=== PATIENT | male | born 1930 | race Caucasian/White ===

== ENCOUNTER 2016-12-09 13:02 | Outpatient (CLI) | payer OTHER | END 2016-12-09 13:03 | disposition home or self-care (01) | DX: G47.10 Hypersomnia, unspecified (principal); G47.8 Other sleep disorders; R06.83 Snoring; G47.21 Circadian rhythm sleep disorder, delayed sleep phase type; G47.19 Other hypersomnia ==

== ENCOUNTER 2016-12-27 08:00 | Outpatient (CLI) | payer OTHER | END 2016-12-27 23:59 | DX: R51 Headache (principal); I50.9 Heart failure, unspecified; G45.9 Transient cerebral ischemic attack, unspecified ==

== ENCOUNTER 2017-01-07 11:07 | Outpatient (CLI) | payer OTHER ==
[2017-01-07] MEDS ORDERED: IOPAMIDOL-300 50 ML VIAL PO ONE (11:40)
[2017-01-07] MEDS ORDERED: IOPAMIDOL-300 100 ML VIAL IVP ONE (11:45)
== END 2017-01-07 11:08 | disposition home or self-care (01) ==
DX: I67.82 Cerebral ischemia (principal); G31.9 Degenerative disease of nervous system, unspecified
CPT/HCPCS: 70470; Q9967

== ENCOUNTER 2017-05-09 17:48 | Outpatient (CLI) | payer OTHER | END 2017-05-09 17:49 | disposition critical access hospital (66) | LOC: EMS 17:48 | PROVIDERS: ATTEND Surgery | DX: R56.9 Unspecified convulsions (principal) | CPT/HCPCS: A0425; A0427 ==

== ENCOUNTER 2017-05-09 18:21 | Observation (INO) | payer OTHER, MEDICARE ==
[2017-05-09] MEDS ORDERED: SODIUM CHLORIDE 0.9% 500 ML IV ONE (18:35)
--- NOTE | 2017-05-09 18:35 | ED Physician Documentation ---
PD HPI SYNCOPE - Stated complaint Stated Complaint: SYNCOPE - Chief complaint Chief Complaint: General - History obtained from History obtained from: Patient, Family, EMS - History of Present Illness Witnessed: Witnessed Timing - onset: How many minutes ago (20) Duration: Minutes (1-2 or less. Daughter saw patient wavering and seem to perhaps reach for the deck railing, then he collapsed. She went over to him within few seconds and he was still unresponsive, and seemed to have shallow breathing. He did tense up his arms and neck. No tremors per se. He then awoke and was moderately confused for a minute or so. He was more lucid by EMS arrival several minutes later. Denies chest pain. He did have abrasion back of head and states some localized headache there.) Preceding symptoms: Light headed. No: Headache, Chest pain, Abdominal pain Associated symptoms: Headache (he struck back of head when fainted, with some local headache after.). No: Chest pain, Abdominal pain Contributing factors: Exertion (was sweeping the deck). No: Recent med change, Decreased PO intake Similar symptoms before: Has not had sx before Recently seen: Not recently seen Review of Systems Constitutional: denies: Fever, Chills Nose: denies: Rhinorrhea / runny nose, Congestion Throat: denies: Sore throat Cardiac: denies: Chest pain / pressure, Palpitations, Pedal edema, Calf pain Respiratory: denies: Dyspnea, Cough, Wheezing GI: denies: Abdominal Pain, Nausea, Vomiting, Diarrhea Skin: reports: Abrasion (s). denies: Laceration (s) Musculoskeletal: denies: Neck pain, Back pain Neurologic: reports: Syncope, Headache, Head injury. denies: Focal weakness, Numbness, Altered mental status Psychiatric: denies: Depressed Endocrine: reports: Easy bruising / bleeding. denies: Weight loss Immunocompromised: denies: Immunocompromised PD PAST MEDICAL HISTORY - Past Medical History Cardiovascular: Hypertension, Atrial fibrillation Respiratory: None Neuro: TIA - Present Medications Home Medications: Ambulatory Orders Medication Instructions Recorded Confirmed Dabigatran [Pradaxa] 0 mg PO DAILY 05/09/17 05/09/17 Lisinopril 10 mg PO DAILY 05/09/17 05/09/17 Simvastatin 0 mg PO DAILY 05/09/17 05/09/17 - Allergies Allergies/Adverse Reactions: Allergies Allergy/AdvReac Type Severity Reaction Status Date / Time No Known Drug Allergies Allergy Verified 05/09/17 18:37 - Living Situation Living Situation: reports: With family Living Arrangement: reports: At home - Social History Does the pt smoke?: No Does the pt drink ETOH?: No Does the pt have substance abuse?: No - Family History Family history: reports: Non contributory PD ED PE NORMAL - Vitals Vital signs reviewed: Yes - General General: No acute distress, Well developed/nourished, Other (abrasion back of head without laceration nor FB. ) - HEENT HEENT: Pharynx benign, Dentition benign - Neck Neck: Supple, no meningeal sign, No bony TTP, No adenopathy - Cardiac Cardiac: No murmur, No rub. No: RRR (rate controlled 60-70, with irregular pattern c/w atrial fib.) - Respiratory Respiratory: No respiratory distress, Clear bilaterally - Abdomen Abdomen: Soft, Non tender - Male Male : Deferred - Rectal Rectal: Deferred - Back Back: No CVA TTP, No spinal TTP - Derm Derm: Normal color, Warm and dry - Extremities Extremities: No deformity, No tenderness to palpate, Normal ROM s pain, No edema - Neuro Neuro: Alert and oriented X 3, No motor deficit, Normal speech - Psych Psych: Normal mood Results - Vitals Vitals: Vital Signs - 24 hr 05/09/17 05/09/17 05/09/17 18:21 19:52 21:42 Temperature 36.3 C L 36.1 C L Heart Rate 65 69 58 L Respiratory 18 16 18 Rate Blood Pressure 120/63 131/73 H 132/66 H O2 Saturation 100 98 93 05/09/17 22:45 Temperature 36.5 C Heart Rate 55 L Respiratory 18 Rate Blood Pressure 114/56 L O2 Saturation 95 Oxygen O2 Source Room air - EKG (time done) 18:39 Rate: Rate (enter#) Rhythm: Atrial fibrillation (60) [place]: Normal Intervals: RBBB QRS: Normal Ischemia: T wave inversion (V1-V3 with nonspecific ), Non specific changes Compare to prior EKG: Old EKG unavailable - Labs Labs: Laboratory Tests 05/09/17 05/09/17 05/09/17 19:48 19:48 19:48 WBC 7.6 RBC 3.57 L Hgb 11.4 L Hct 32.8 L MCV 91.8 MCH 31.9 H MCHC 34.7 RDW 15.1 H Plt Count 116 L MPV 8.6 Neut # 5.5 Lymph # 0.9 L Coles # 0.8 Eos # 0.3 Baso # 0.1 Absolute Nucleated RBC 0.00 Nucleated RBCs 0.0 Sodium 132 L Potassium 5.0 Chloride 102 Carbon Dioxide 22 Anion Gap 8.0 BUN 33 H Creatinine 1.7 H Estimated GFR (MDRD) 38 L Glucose 109 H Calcium 8.8 Magnesium 1.9 Total Bilirubin 1.3 H AST 40 ALT 24 Alkaline Phosphatase 80 Total Creatine Kinase CK-MB (CK-2) Troponin I 0.12 B-Natriuretic Peptide Total Protein 6.8 Albumin 3.8 Globulin 3.0 Albumin/Globulin Ratio 1.3 Lipase 33 05/09/17 05/09/17 05/09/17 19:48 22:10 22:10 WBC RBC Hgb Hct MCV MCH MCHC RDW Plt Count MPV Neut # Lymph # Coles # Eos # Baso # Absolute Nucleated RBC Nucleated RBCs Sodium Potassium Chloride Carbon Dioxide Anion Gap BUN Creatinine Estimated GFR (MDRD) Glucose Calcium Magnesium Total Bilirubin AST ALT Alkaline Phosphatase Total Creatine Kinase 230 CK-MB (CK-2) 5.6 Troponin I 0.23 B-Natriuretic Peptide 352 H Total Protein Albumin Globulin Albumin/Globulin Ratio Lipase - Rads (name of study) head CT Radiology: Prelim report reviewed (no bleed, no acute process) PD MEDICAL DECISION MAKING - ED course Complexity details: reviewed results, re-evaluated patient, considered differential (he appears well here and has not pain complaints. However no history of syncope nor seizures. This is concerning for diabetic patient with history of HTN and atrial fib. Initial troponin is indeterminate. Repeat one at slightly higher, concerning for ACS but is still not truly positive at 4 hours after onset symptoms and he is still without chest pain. Willl have Hospitalist admit for repeated Troponin at 8-12 hours.), d/w patient, d/w family (daughter) Departure - Departure Disposition: ED Place in Observation Clinical Impression: Syncope Qualifiers: Syncope type: unspecified Qualified Code(s): R55 - Syncope and collapse Condition: Stable Record reviewed to determine appropriate education?: Yes
[2017-05-09 19:55] LABS: BASOPHILS # (AUTO) 0.1 10^3/uL (0.0-0.1); BASOPHILS % (AUTO) 0.7 %; EOSINOPHILS # (AUTO) 0.3 10^3/uL (0.0-0.7); EOSINOPHILS % (AUTO) 3.4 %; HCT - HEMATOCRIT 32.8 % (42.0-52.0); HGB - HEMOGLOBIN 11.4 g/dL (14.0-18.0); LYMPHOCYTES # (AUTO) 0.9 10^3/uL (1.5-3.5); LYMPHOCYTES % (AUTO) 11.7 %; MEAN CORPUSCULAR HEMOGLOBIN 31.9 pg (27.0-31.0); MEAN CORPUSCULAR HGB CONC 34.7 g/dL (32.0-36.0); MEAN CORPUSCULAR VOLUME 91.8 fL (80.0-94.0); MEAN PLATELET VOLUME 8.6 fL (7.4-11.4); MONOCYTES # (AUTO) 0.8 10^3/uL (0.0-1.0); MONOCYTES % (AUTO) 11.1 %; NEUTROPHILS # (AUTO) 5.5 10^3/uL (1.5-6.6); NEUTROPHILS % (AUTO) 73.1 %; RED BLOOD COUNT 3.57 10^6/uL (4.70-6.10); RED CELL DISTRIBUTION WIDTH 15.1 % (12.0-15.0); UNCORRECTED WHITE BLOOD COUNT 7.6 x10^3/uL; WHITE BLOOD COUNT 7.6 x10^3/uL (4.8-10.8)
--- NOTE | 2017-05-09 19:55 | CT Preliminary Report ---
Exam: CT Head W/O IMPRESSION: 1. Negative for hemorrhage, mass effect, or localizing acute process. 2. Mild nonfocal white matter disease. Nonspecific but most commonly seen with chronic microangiopath y. [facility] SITE ID: [id number]
--- NOTE | 2017-05-09 19:57 | CT Report ---
EXAM: CT HEAD EXAM DATE: 05/09/2017 07:34 PM. CLINICAL HISTORY: Syncope/fall, on Pradaxa. COMPARISON: 01/07/2017. TECHNIQUE: Multiaxial CT images were obtained from the foramen magnum to the vertex. IV contrast: Non e. Reformats: Coronal. In accordance with CT protocol optimization, one or more of the following dose reduction techniques w ere utilized for this exam: automated exposure control, adjustment of mA and/or KV based on patient s ize, or use of iterative reconstructive technique. FINDINGS: Parenchyma: There is mild periventricular white matter hypodensity. Negative for acute hemorrhage. No midline shift or mass effect. Extraaxial Spaces: No abnormal subdural or epidural fluid collection. Ventricles: Normal in size and position. Sinuses: Imaged paranasal sinuses, orbits, and mastoids show no significant abnormality. Bones: No evidence of fracture or calvarial defect. Other: None. IMPRESSION: 1. Negative for hemorrhage, mass effect, or localizing acute process. 2. Mild nonfocal white matter disease. Nonspecific but most commonly seen with chronic microangiopath y. [facility] Referring Provider Line: [phone] SITE ID: [id number]
[2017-05-09 20:08] LABS: ALBUMIN/GLOBULIN RATIO 1.3 (1.0-2.2); BILIRUBIN,TOTAL 1.3 mg/dL (0.2-1.0); CALCIUM 8.8 mg/dL (8.5-10.3); CREATININE 1.7 mg/dL (0.6-1.2); MAGNESIUM 1.9 mg/dL (1.7-2.8); TOTAL PROTEIN 6.8 g/dL (6.7-8.2)
[2017-05-09] MEDS ORDERED: ASPIRIN CHEW 81 MG TABLET PO STA (20:44)
[2017-05-09 22:35] LABS: TROPONIN I 0.23 ng/mL (<0.49)
[2017-05-09 22:36] LABS: CREATINE KINASE MB 5.6 ng/mL (0.6-6.3)
[2017-05-09] MEDS ORDERED: MORPHINE 2 MG/ML SYRINGE IVP PRN (23:01)
[2017-05-09] MEDS ORDERED: ZOLPIDEM 5 MG TABLET PO PRN (23:05)
[2017-05-09] MEDS ORDERED: SODIUM CHLORIDE FLUSH 0.9% 10 ML SYRINGE IVP PRN (23:05)
[2017-05-09] MEDS ORDERED: ONDANSETRON 4 MG/2 ML VIAL IVP PRN (23:05)
[2017-05-09] MEDS ORDERED: ACETAMINOPHEN 325 MG TABLET PO PRN (23:05)
[2017-05-10 04:29] LABS: CALCIUM 8.9 mg/dL (8.5-10.3); CREATININE 1.7 mg/dL (0.6-1.2); POTASSIUM 4.9 mmol/L (3.5-5.0)
--- NOTE | 2017-05-10 06:04 | HISTORY & PHYSICAL EXAMINATION ---
DATE OF ADMISSION: 05/09/2017 Please note that I did see the patient and entered admission orders prior to midnight. CHIEF COMPLAINT: Syncope. HISTORY OF PRESENT ILLNESS: The patient is an 86-year-old white male with past medical history of atrial fibrillation on therapeutic anticoagulation and with history of coronary artery disease status post coronary artery bypass graft in 1998. The patient was in his usual state of health on the afternoon of 2016, he was sweeping his deck, at which time he became lightheaded and passed out. Other than being lightheaded, he offered no complaints. Denied chest pain, shortness of breath. Noted, however, that considering his advanced age, he often gets exerted even on minimal physical activity. He does not remember exactly what happened, but when he regained consciousness his daughter, Jennifer was standing over him. The patient's daughter, Jennifer actually accompanied the patient to the ER and she confirmed the history. The patient had a true syncope witnessed by his daughter. He fell on the ground, hit the back of his head and was lying on his back when Jennifer assisted him. It took about 30 seconds to a minute until he completely regained consciousness. Initially, when he opened his eyes, he appeared foggy and slightly confused but quickly regained consciousness. He did not have any focal weakness. 911 was called and by the time they arrived on the scene, the patient was back to normal. When I examined him in the ER, he was not in distress, sitting up in bed chit chatting, denied all complaints. Upon presentation to the ER, the patient was afebrile and hemodynamically stable. Notably, his heart rate went on the lower side, anywhere between 50 and 60. EKG showed atrial fibrillation with a slow rate and a right bundle branch block pattern. CT scan of the brain was negative, showed no acute abnormality. Signs of nonspecific chronic microangiopathy were mentioned in the report. Notably, the patient suffered a closed head injury and had occipital abrasion and small bruise, but there was no intracranial hemorrhage. Laboratories showed creatinine of 1.7. Of note, the patient has history of chronic renal insufficiency with creatinine baseline between 1.3 and 1.5. His white blood cell count was normal. Electrolytes unremarkable. Troponin was 0.12, subsequently increased to 0.23. CK and CK-MB were unremarkable. Regarding cardiac history, the patient reports that he last underwent stress test in 06/2016 which was negative. He has not had any cardiac problem since his cardiac bypass, since 1998. He does not have history of ventricular tachycardia and had not had recent problem with atrial fibrillation. Reviewing online records, there is an echocardiogram from 2014 which described ejection fraction of 55%, anteroseptal hypokinesis and mild to moderate pulmonary hypertension. PAST MEDICAL HISTORY: 1. Hypertension. 2. Dyslipidemia. 3. Chronic renal insufficiency. 4. Atrial fibrillation on Pradaxa anticoagulation, not needing a rate control agent. 5. Abnormal EKG with right bundle branch block pattern. 6. History of congestive heart failure, unknown details from the past. Most recently echocardiogram showed normal systolic function, wall motion abnormality and mild to moderate pulmonary hypertension. 7. Coronary artery disease. History of coronary artery bypass graft in 1998, no angiography and no stent placement. The patient's cardiac status has been stable since the bypass. OUTPATIENT MEDICATIONS: Included. 1. Pradaxa. 2. Lisinopril. 3. Simvastatin. ALLERGIES: NO KNOWN DRUG ALLERGIES. SOCIAL HISTORY: The patient does not smoke, does not drink. He ambulates with a cane. For longer distances, he uses an electric wheelchair. FAMILY HISTORY: Negative for coronary artery disease. CODE STATUS: FULL CODE. REVIEW OF SYSTEMS: Please see pertinent positive listed at history of present illness. In addition, the patient complained of chronic insomnia and his daughter mentioned that he most likely has obstructive sleep apnea, which he plans to get evaluated for as an outpatient. In addition, on further interview, he denied any recent change in his health such as fever, cough, shortness of breath, worsening exertional symptoms or any other change. A 12-point review was negative. PHYSICAL EXAMINATION: VITAL SIGNS: Heart rate between 50 and 60, respiratory rate 18, oxygen saturation 96% on room air, blood pressure 130/50, temperature 36.6 Celsius. GENERAL: The patient is a well-developed elderly male, who is not in distress. SKIN: Without pallor or jaundice. LYMPH NODES: Mild pitting pedal edema bilaterally symmetric. CARDIOVASCULAR: S1, S2 irregularly irregular, bradycardia. I could not hear significant murmur. RESPIRATORY: No wheezes, no crackles. Good air entry throughout. No increased work of breathing. ABDOMEN: Obese, benign. Bowel tones present. NEUROLOGIC: Alert, oriented, nonfocal. PSYCH: Cooperative. MUSCULOSKELETAL: Small abrasion on the back of the head. No other trauma. ASSESSMENT AND PLAN/ACTIVE ISSUES/DIAGNOSES: 1. Syncope. Given the patient's extensive cardiac history, the most likely possibility would be cardiogenic syncope, such as syncope secondary to bradycardia or uncontrolled rate with atrial fibrillation. Also with underlying coronary artery disease, a short episode of ventricular tachycardia is also possible. On initial evaluation, the patient ruled out for acute coronary syndrome, had 2 negative troponins and EKG without acute change. Overnight, he is getting admitted under observation. We will complete rapid cardiac rule out, checking last set of troponin. For cardiac arrhythmia, the patient will be monitored on telemetry. On admission he was given an aspirin. If he completes a rapid cardiac rule out, he should be referred back to his insurance healthcare consultant for further workup. As he had a stress test in June 2016 and he does have regular cardiology followup, I would probably not do a stress test here in [facility] and I would send him back to have repeat stress test done as outpatient. 2. Closed head injury without acute intracranial abnormality on CT scan. As the patient takes therapeutic anticoagulation, he is on Pradaxa, he will need to be monitored at least for 24 hours for signs of head bleed and prior to discharge, if there is any concern, he should have a repeat CT scan of the brain to make sure that he is not developing subdural hematoma. 3. Atrial fibrillation, with slow ventricular rate without use of rate control medication. I suspect that the patient likely has sick sinus syndrome and might have bradycardic episodes. For now, we will monitor him on telemetry. He might benefit from event monitoring which could be arranged by his insurance healthcare consultant from the outpatient side. 4. Therapeutic anticoagulation. We will continue Pradaxa. 5. Deep venous thrombosis prophylaxis not needed as the patient is anticoagulated. Time spent in the care of this patient was 60 minutes. JOB #: [id number] EXT JOB #:[id number] FAREED
[2017-05-10] MEDS: SODIUM CHLORIDE FLUSH 0.9% 10 ML SYRINGE IVP SCH ×2 (06:32→15:20)
--- NOTE | 2017-05-10 06:36 | XRAY Preliminary Report ---
Exam: XR Chest 2 View PA/LAT IMPRESSION: 1. Cardiomegaly and postoperative changes. 2. Mild pulmonary vascular congestion. [facility] SITE ID: [id number]
--- NOTE | 2017-05-10 06:38 | XRAY Report ---
EXAM: CHEST RADIOGRAPHY EXAM DATE: 05/10/2017 05:59 AM. CLINICAL HISTORY: Syncope. COMPARISON: 02/14/2016. TECHNIQUE: 2 views. FINDINGS: Lungs/Pleura: Mild pulmonary vascular congestion. No alveolar consolidation. No significant pleural e ffusion. Mediastinum: Mild cardiomegaly. Aortic atherosclerosis. Other: Status post median sternotomy. IMPRESSION: 1. Cardiomegaly and postoperative changes. 2. Mild pulmonary vascular congestion. [facility] Referring Provider Line: [phone] SITE ID: [id number]
[2017-05-10] MEDS ORDERED: ATORVASTATIN 10 MG TABLET PO SCH (09:00)
[2017-05-10] MEDS ORDERED: NON FORMULARY MED (Lisinopril [Lisinopril] 10 MG) PO SCH (09:00)
[2017-05-10] MEDS ORDERED: DABIGATRAN 75 MG CAPSULE PO SCH (09:00)
[2017-05-10] MEDS ORDERED: LISINOPRIL 5 MG TABLET PO SCH (09:00)
[2017-05-10] MEDS ORDERED: NON FORMULARY MED (Simvastatin [Simvastatin] 20 MG) PO SCH (09:00)
[2017-05-10] MEDS ORDERED: POLYETHYLENE GLYCOL 3350 17 GM PACKET PO SCH (09:00)
--- NOTE | 2017-05-10 15:31 | CT Report ---
EXAM: CT HEAD EXAM DATE: 05/10/2017 03:09 PM. CLINICAL HISTORY: Fall COMPARISON: 05/09/2017. TECHNIQUE: Multiaxial CT images were obtained from the foramen magnum to the vertex. IV contrast: Non e. Reformats: Coronal. In accordance with CT protocol optimization, one or more of the following dose reduction techniques w ere utilized for this exam: automated exposure control, adjustment of mA and/or KV based on patient s ize, or use of iterative reconstructive technique. FINDINGS: Parenchyma: No intraparenchymal hemorrhage. No evidence of mass, midline shift, or CT findings of inf arction. [place]-white differentiation is distinct. Periventricular white matter hypoattenuation is nons pecific but most likely reflects the sequela of small vessel ischemic change. Mild cortical atrophy. Extraaxial Spaces: Normal for age. No subdural or epidural collections identified. Ventricles: Normal in size and position. Sinuses: Imaged paranasal sinuses, orbits, and mastoids show no significant abnormality. Bones: No evidence of fracture or calvarial defect. Other: None. IMPRESSION: 1. No acute intracranial abnormality. 2. Probable sequela of small vessel ischemic change. [facility] Referring Provider Line: [phone] SITE ID: [id number]
--- NOTE | 2017-05-10 16:14 | Discharge Plan ---
Discharge Plan Disposition: Home, Self Care Condition: Fair Prescriptions: Lisinopril [Zestril] 2.5 mg PO DAILY #30 tablet Diet: Cardiac Activity Restrictions: Activity as Tolerated Shower Restrictions: No Driving Restrictions: Yes (No driving for 6 mos (if you drive)) Weight Bearing: Full Weight Additional Instructions or Follow Up instructions: Stop the Lisinopril 10 mg dose Start the new lower dose of Lisinopril 2.5 mg daily Continue all your other medications as previously taken See your doctor to arrange for pacemaker placement No Smoking: If you smoke, Please STOP! Call for help.
[2017-05-10 16:33] VITALS: BP 143/70
[2017-05-11] MEDS ORDERED: LISINOPRIL 5 MG TABLET PO SCH (09:00)
--- NOTE | 2017-05-11 12:30 | DISCHARGE SUMMARY ---
DATE OF ADMISSION: 05/09/2017 DATE OF DISCHARGE: 05/10/2017 HISTORY OF PRESENT ILLNESS: This is an 86-year-old white male with a history of permanent atrial fibrillation on Pradaxa, history of coronary disease with bypass surgery done over 20 years ago. His last stress test was approximately 10 months ago, which, according to him, was stable. The patient also takes medications for hypertension, hypothyroidism and hyperlipidemia. The patient presented with a witnessed syncopal event, which occurred while he was sweeping outdoors. He hit his left elbow and left shoulder and left occiput area, and the daughter witnessed this and states that it took approximately 60 seconds for him to recover, but by the time he was in the emergency room, he was alert and oriented. The patient was admitted for syncope workup. HOSPITAL COURSE AND DISCHARGE DIAGNOSES 1. Syncope. The patient had normal troponins. The patient had normal electrolytes. The patient had mild chronic renal insufficiency but no evidence of prerenal azotemia to suggest dehydration to explain the syncope. The patient was admitted with atrial fibrillation with rates in the 50s and during the night had brief episodes of atrial fibrillation with a ventricular rate in the 30s. An orthostatic vital sign check showed that from the supine to sitting position his systolic blood pressure was in the 130 range, and with standing, it dropped to 116 systolic with a minimal change of heart rate from 50 beats only to 60 beats. The patient underwent a CT scan of his head, which showed no evidence of prior stroke, microangiopathy. Because of the fall, the CT of the head was repeated after approximately 20 hours and showed no evidence of bleeding, such as a subdural hematoma. The impression was that the patient had orthostasis and chronotropic incompetence as a cause of his syncope. Therefore, his lisinopril dose of 10 mg daily was decreased to 2.5 mg daily at discharge, and he was advised to have cardiology followup for likely pacemaker insertion that would be needed within the next weeks to months. The patient MAY NOT DRIVE for the next 6 months because of the syncope, if he drives. 2. Coronary artery disease with bypass surgery. There were no complaints or abnormality with his troponin during this admission. His echo was done as an inpatient that showed mild wall motion abnormalities but an overall preserved LVEF, but there was significant pulmonary hypertension seen on the echo with PA pressure of 66 mmHg. 3. Permanent atrial fibrillation. The patient is on Pradaxa at renal doses which is appropriate. If there are further falls; however, the Pradaxa would be risky to use, and he should then be converted to a daily aspirin a day for stroke prophylaxis. With regard to the slow rate of his atrial fibrillation, a pacemaker is very likely to be needed in the next few weeks to months. The patient is eager to have this management, and he was advised to have followup with his PCP and boatswains mate for this to be scheduled. 4. Pulmonary hypertension. The patient has no evidence of COPD to explain the pulmonary hypertension; however, in review of systems, there was note of the patient having sleep apnea. The patient has planned to have sleep studies and always canceled these, and it was advised that he undergo this evaluation and management. 5. Hypothyroidism. Continue with present dose of his thyroid replacement. CONDITION AT DISCHARGE: Fair. FOLLOWUP: With primary care doctor and his boatswains mate. CODE STATUS: IS A FULL CODE. JOB #: [id number] EXT JOB #:[id number] ADDENDUM: THE DAUGHTER CALLED AFTER [facility], ASKING WHY THE PATIENT SHOULD STOP HIS ATOVASTATIN. I EXPLAINED THAT HIS MED LIST INDICATED HE WAS ON SIMVASTATIN AT HOME AND THAT WE DON'T CARE THAT, AND THAT LIPITOR WAS SUBSTITUTED AN INPATIENT. THE DAUGHTER SAID THAT SIMVASTATIN IS INCORRECT, HE TAKES LIPITOR. I ADVISED HER THAT THE PATIENT SHOULD CONTINUE LIPITOR. [facility]
== END 2017-05-10 17:00 | disposition home or self-care (01) ==
LOC: EDUNIT# → ED 18:21 → OBS 23:05
PROVIDERS: ADMIT Internal Medicine; ATTEND Internal Medicine
DX: I45.89 Other specified conduction disorders (principal); I48.2 Chronic atrial fibrillation; S00.03XA Contusion of scalp, initial encounter; W19.XXXA Unspecified fall, initial encounter; Y93.H9 Activity, other involving exterior property and land maintenance, building and construction; Y92.008 Other place in unspecified non-institutional (private) residence as the place of occurrence of the external cause; I13.0 Hypertensive heart and chronic kidney disease with heart failure and stage 1 through stage 4 chronic kidney disease, or unspecified chronic kidney disease; I50.30 Unspecified diastolic (congestive) heart failure; N18.9 Chronic kidney disease, unspecified; I27.2 Other secondary pulmonary hypertension; I25.10 Atherosclerotic heart disease of native coronary artery without angina pectoris; E78.5 Hyperlipidemia, unspecified; E03.9 Hypothyroidism, unspecified; Z79.01 Long term (current) use of anticoagulants; Z86.73 Personal history of transient ischemic attack (TIA), and cerebral infarction without residual deficits; Z95.1 Presence of aortocoronary bypass graft
CPT/HCPCS: 36415; 70450; 71020; 80048; 80053; 82550; 82552; 82553; 83690; 83735; 83880; 84484; 85025; 93005; 93306; 96360; 96361; 97161; 99218; 99284; 99285; A9270; G8978; G8979; G8980; 99213

== ENCOUNTER 2017-05-27 13:09 | Outpatient (CLI) | payer OTHER, MEDICARE | END 2017-05-27 13:10 | disposition home or self-care (01) | LOC: SC 13:09 | PROVIDERS: ATTEND Internal Medicine Pulmonary Disease | DX: G47.33 Obstructive sleep apnea (adult) (pediatric) (principal) | CPT/HCPCS: 99212; 99213 ==

== ENCOUNTER 2017-06-10 20:19 | Outpatient (CLI) | payer MEDICARE, OTHER | END 2017-06-10 20:20 | disposition home or self-care (01) | LOC: SC 20:19 | PROVIDERS: ATTEND Internal Medicine Pulmonary Disease | DX: G47.33 Obstructive sleep apnea (adult) (pediatric) (principal); I48.91 Unspecified atrial fibrillation; G47.61 Periodic limb movement disorder; Z68.37 Body mass index [BMI] 37.0-37.9, adult | CPT/HCPCS: 95810 ==

== ENCOUNTER 2017-06-30 13:58 | Outpatient (CLI) | payer OTHER | END 2017-06-30 13:59 | disposition home or self-care (01) | LOC: SC 13:58 | PROVIDERS: ATTEND Nurse Practitioner Family | DX: G47.33 Obstructive sleep apnea (adult) (pediatric) (principal); G47.61 Periodic limb movement disorder | CPT/HCPCS: 99212; 99214 ==

== ENCOUNTER 2017-10-26 19:28 | Outpatient (CLI) | payer OTHER | END 2017-10-26 19:29 | disposition home or self-care (01) | LOC: SC 19:28 | PROVIDERS: ATTEND Internal Medicine Pulmonary Disease | DX: G47.33 Obstructive sleep apnea (adult) (pediatric) (principal); G47.61 Periodic limb movement disorder | CPT/HCPCS: 95811 ==

== ENCOUNTER 2017-11-17 14:05 | Outpatient (CLI) | payer OTHER | END 2017-11-17 14:06 | disposition home or self-care (01) | LOC: SC 14:05 | PROVIDERS: ATTEND Nurse Practitioner Family | DX: G47.33 Obstructive sleep apnea (adult) (pediatric) (principal) | CPT/HCPCS: 99212; 99214 ==

== ENCOUNTER 2018-05-08 14:34 | Outpatient (CLI) | payer OTHER ==
[2018-05-08 18:50] LABS: BASOPHILS % (AUTO) 0.7 %; EOSINOPHILS # (AUTO) 0.6 10^3/uL (0.0-0.7); EOSINOPHILS % (AUTO) 9.4 %; HGB - HEMOGLOBIN 11.7 g/dL (14.0-18.0); LYMPHOCYTES # (AUTO) 1.4 10^3/uL (1.5-3.5); MEAN CORPUSCULAR HEMOGLOBIN 32.1 pg (27.0-31.0); MEAN CORPUSCULAR HGB CONC 34.4 g/dL (32.0-36.0); MEAN CORPUSCULAR VOLUME 93.1 fL (80.0-94.0); MEAN PLATELET VOLUME 8.8 fL (7.4-11.4); MONOCYTES # (AUTO) 0.8 10^3/uL (0.0-1.0); MONOCYTES % (AUTO) 11.9 %; NEUTROPHILS # (AUTO) 3.7 10^3/uL (1.5-6.6); PLT - PLATELET COUNT 157 10^3/uL (130-450); RED BLOOD COUNT 3.64 10^6/uL (4.70-6.10); RED CELL DISTRIBUTION WIDTH 15.2 % (12.0-15.0); WHITE BLOOD COUNT 6.5 x10^3/uL (4.8-10.8)
[2018-05-08 18:59] LABS: ALBUMIN 3.9 g/dL (3.2-5.5); ALBUMIN/GLOBULIN RATIO 1.3 (1.0-2.2); CALCIUM 9.1 mg/dL (8.5-10.3); CREATININE 1.5 mg/dL (0.6-1.2)
== END 2018-05-08 14:35 | disposition home or self-care (01) ==
LOC: LAB.WCP 14:34
PROVIDERS: ATTEND Nurse Practitioner
DX: I50.9 Heart failure, unspecified (principal)
CPT/HCPCS: 36415; 80053; 83880; 85025